=== PATIENT | female | born 1985 | race Caucasian/White ===

== ENCOUNTER 2018-09-03 16:04 | Observation (INO) | payer OTHER ==
[~2018-09-03] VITALS: Ht 154 cm; Wt 92.2 kg
[2018-09-03 16:36] LABS: BASOPHILS % (AUTO) 0.3 % (0.0-2.0); EOSINOPHILS % (AUTO) 0 % (1.0-6.0); HEMATOCRIT 38.8 % (36-46); HEMOGLOBIN 12.6 g/dL (12.0-16.0); LYMPHOCYTES # (AUTO) 2.1 K/uL (1.0-4.8); LYMPHOCYTES % (AUTO) 19.7 % (22.0-44.0); MEAN CORPUSCULAR HEMOGLOBIN 31.3 pg (26.0-34.0); MEAN CORPUSCULAR HGB CONC 32.6 G/dL (31.0-37.0); MEAN CORPUSCULAR VOLUME 96 fL (80-100); MONOCYTES # (AUTO) 0.7 K/uL (0.1-1.0); MONOCYTES % (AUTO) 6.6 % (2.0-9.0); NEUTROPHILS # (AUTO) 7.8 K/uL (1.8-7.7); NEUTROPHILS % (AUTO) 73.4 % (40.0-70.0); PLATELET COUNT (AUTO) 218 K/uL (150-450); RED BLOOD CELL COUNT(AUTO) 4.04 MIL/uL (4.00-5.20); RED CELL DISTRIBUTION WIDTH 13.8 % (11.5-14.5)
[2018-09-03 16:49] LABS: ANION GAP 12 mmol/L (8-16); CALCIUM, TOTAL 9.7 mg/dL (8.8-10.5); CARBON DIOXIDE 22 mmol/L (22-29); CHLORIDE 102 mmol/L (98-107); CREATININE 0.73 mg/dL (0.60-1.30); GLOMERULAR FILTR. RATE CALC > 60 mL/min (>60); GLUCOSE,RANDOM 68 mg/dL (70-110); POTASSIUM 3.7 mmol/L (3.5-5.1); SODIUM SERUM 136 mmol/L (136-145); UREA NITROGEN, BLOOD 9 mg/dL (7-18)
[2018-09-03 16:54] LABS: ALANINE AMINOTRANSFERASE 13 U/L (12-78); ALBUMIN 2.6 g/dL (3.4-5.0); ALKALINE PHOSPHATASE 145 U/L (46-116); ASPARTATE AMINOTRANSFERASE 10 U/L (15-37); BILIRUBIN,TOTAL 0.6 mg/dL (0.1-1.0); URIC ACID 4.8 mg/dL (2.6-7.2)
== END 2018-09-03 20:20 | disposition home or self-care (01) ==
LOC: 4S 16:04
PROVIDERS: ADMIT Obstetrics & Gynecology; ATTEND Obstetrics & Gynecology
DX: O26.893 Other specified pregnancy related conditions, third trimester (principal); R03.0 Elevated blood-pressure reading, without diagnosis of hypertension; Z3A.38 38 weeks gestation of pregnancy
CPT/HCPCS: 36415; 80053; 81002; 84550; 85025; G0378

== ENCOUNTER 2018-09-08 10:19 | Inpatient (IN) | payer OTHER ==
[~2018-09-08] VITALS: Ht 154.9 cm; Wt 95.7 kg
[2018-09-08] MEDS ORDERED: RINGERS SOLUTION,LACTATED 1,000 ML IV ONE (10:27)
[2018-09-08] MEDS ORDERED: METOCLOPRAMIDE HCL 5 MG/ML 2 ML VIAL IVP ONE (10:30)
[2018-09-08] MEDS ORDERED: CITRIC ACID/SODIUM CITRATE 30 ML SOLUTION UDCUP PO ONE (10:30)
[2018-09-08 10:42] VITALS: BP 115/55
[2018-09-08] MEDS ORDERED: NALBUPHINE HCL 10 MG/ML VIAL IVP PRN ×2 (11:15)
[2018-09-08] MEDS ORDERED: NALOXONE HCL 0.4 MG/ML VIAL IVP PRN (11:15)
[2018-09-08] MEDS ORDERED: DiphenhydrAMINE HCL 50 MG/ML VIAL IVP PRN (11:15)
[2018-09-08] MEDS ORDERED: ONDANSETRON HCL 4 MG/2 ML VIAL IVP PRN (11:15)
[2018-09-08] MEDS ORDERED: FentaNYL CITRATE-PF 100 MCG/2 ML VIAL IVP PRN (11:15)
[2018-09-08] MEDS ORDERED: MORPHINE SULFATE 10 MG/ML SYRINGE IVP PRN (11:15)
[2018-09-08 11:18] LABS: BASOPHILS % (AUTO) 0.3 % (0.0-2.0); EOSINOPHILS % (AUTO) 0.2 % (1.0-6.0); HEMOGLOBIN 12.2 g/dL (12.0-16.0); LYMPHOCYTES # (AUTO) 1.4 K/uL (1.0-4.8); LYMPHOCYTES % (AUTO) 16.7 % (22.0-44.0); MEAN CORPUSCULAR HEMOGLOBIN 31.5 pg (26.0-34.0); MEAN CORPUSCULAR VOLUME 96 fL (80-100); MONOCYTES # (AUTO) 0.6 K/uL (0.1-1.0); MONOCYTES % (AUTO) 7.4 % (2.0-9.0); NEUTROPHILS # (AUTO) 6.3 K/uL (1.8-7.7); NEUTROPHILS % (AUTO) 75.4 % (40.0-70.0); PLATELET COUNT (AUTO) 197 K/uL (150-450); RED BLOOD CELL COUNT(AUTO) 3.88 MIL/uL (4.00-5.20); RED CELL DISTRIBUTION WIDTH 13.9 % (11.5-14.5)
[2018-09-08] MEDS ORDERED: GUM MASTIC/STORAX/MSAL/ALCOHOL LIQUID 0.67 ML VIAL TP ONE (12:16)
[2018-09-08] MEDS ORDERED: OXYTOCIN 30 UNITS/LACT RINGERS 500 ML IV ONE (15:46)
[2018-09-08] MEDS ORDERED: MAGNESIUM HYDROXIDE SUSPENSION 30 ML UDCUP PO PRN (16:00)
[2018-09-08] MEDS ORDERED: GLYCERIN/WITCH HAZEL LEAF 40 PADS JAR TP PRN (16:00)
[2018-09-08] MEDS ORDERED: BENZOCAINE 20%/MENTHOL 56 GM SPRAY CANISTER TP PRN (16:00)
[2018-09-08] MEDS ORDERED: LANOLIN 7 GM OINTMENT TP PRN (16:00)
[2018-09-08] MEDS ORDERED: LIDOCAINE/PF 1% 30 ML VIAL INJ PRN (16:00)
[2018-09-08] MEDS: ACETAMINOPHEN 1000 MG/ISO-OSM 100 ML IV SCH (17:39)
[2018-09-08] MEDS ORDERED: RINGERS SOLUTION,LACTATED 1,000 ML IV SCH (17:50)
[2018-09-08] MEDS ORDERED: OxyCODONE HCL/ACETAMINOPHEN 5-325 MG TABLET PO PRN (18:00)
[2018-09-08] MEDS ORDERED: OXYGEN THERAPY IH SCH (20:00)
[2018-09-08] MEDS: KETOROLAC TROMETHAMINE 30 MG/ML VIAL IVP SCH (20:23)
[2018-09-09] MEDS: ACETAMINOPHEN 1000 MG/ISO-OSM 100 ML IV SCH (01:09)
[2018-09-09] MEDS: KETOROLAC TROMETHAMINE 30 MG/ML VIAL IVP SCH ×2 (02:48→08:54)
[2018-09-09] MEDS ORDERED: CefoTEtan DISODIUM 1 GM/VIAL IVP ONE (05:30)
[2018-09-09] MEDS ORDERED: ONDANSETRON HCL 4 MG/2 ML VIAL IVP ONE (05:30)
[2018-09-09] MEDS ORDERED: KETOROLAC TROMETHAMINE 60 MG/2 ML VIAL IM ONE (05:30)
[2018-09-09] MEDS ORDERED: FentaNYL CITRATE-PF 100 MCG/2 ML VIAL IVP ONE (05:30)
[2018-09-09] MEDS ORDERED: MORPHINE SULFATE/PF 0.5 MG/ML 10 ML AMP IVP ONE (05:30)
[2018-09-09 06:01] LABS: BASOPHILS % (AUTO) 0.3 % (0.0-2.0); EOSINOPHILS % (AUTO) 0.1 % (1.0-6.0); HEMATOCRIT 28.8 % (36-46); HEMOGLOBIN 9.5 g/dL (12.0-16.0); LYMPHOCYTES # (AUTO) 1.5 K/uL (1.0-4.8); LYMPHOCYTES % (AUTO) 17.7 % (22.0-44.0); MEAN CORPUSCULAR HEMOGLOBIN 31.9 pg (26.0-34.0); MEAN CORPUSCULAR HGB CONC 33.1 G/dL (31.0-37.0); MEAN CORPUSCULAR VOLUME 96 fL (80-100); MONOCYTES # (AUTO) 0.5 K/uL (0.1-1.0); MONOCYTES % (AUTO) 6.6 % (2.0-9.0); NEUTROPHILS # (AUTO) 6.3 K/uL (1.8-7.7); NEUTROPHILS % (AUTO) 75.3 % (40.0-70.0); PLATELET COUNT (AUTO)-OB 163 K/uL (150-450); RED BLOOD CELL COUNT(AUTO) 2.99 MIL/uL (4.00-5.20); RED CELL DISTRIBUTION WIDTH 13.9 % (11.5-14.5)
[2018-09-09] MEDS ORDERED: IBUPROFEN 800 MG TABLET PO PRN (16:00)
[2018-09-09] MEDS ORDERED: OxyCODONE HCL/ACETAMINOPHEN 5-325 MG TABLET PO PRN ×2 (16:00)
[2018-09-09] MEDS: IBUPROFEN 800 MG TABLET PO PRN ×2 (16:35→23:30)
[2018-09-09] MEDS: OxyCODONE HCL/ACETAMINOPHEN 5-325 MG TABLET PO PRN (20:43)
[2018-09-09] MEDS: MAGNESIUM HYDROXIDE SUSPENSION 30 ML UDCUP PO SCH (20:44)
[2018-09-10] MEDS: IBUPROFEN 800 MG TABLET PO PRN ×2 (06:33→16:18)
[2018-09-10] MEDS: MAGNESIUM HYDROXIDE SUSPENSION 30 ML UDCUP PO SCH ×2 (08:08→21:21)
[2018-09-10] MEDS: OxyCODONE HCL/ACETAMINOPHEN 5-325 MG TABLET PO PRN (08:09)
[2018-09-11] MEDS: IBUPROFEN 800 MG TABLET PO PRN (05:41)
[2018-09-11] MEDS: MAGNESIUM HYDROXIDE SUSPENSION 30 ML UDCUP PO SCH (08:48)
[2018-09-11] MEDS ORDERED: IBUP-2071 PO (13:54)
== END 2018-09-11 14:30 | disposition home or self-care (01) | DRG 785 ==
LOC: OBSVTOIN 10:19 → 4S 10:19
PROVIDERS: ADMIT Obstetrics & Gynecology; ATTEND Obstetrics & Gynecology
PROC: 10D00Z1 Extraction of Products of Conception, Low, Open Approach (ICD-10-PCS; principal; 2018-09-08)
PROC: 0UB70ZZ Excision of Bilateral Fallopian Tubes, Open Approach (ICD-10-PCS; 2018-09-08)
DX: O34.211 Maternal care for low transverse scar from previous cesarean delivery (principal); Z3A.39 39 weeks gestation of pregnancy; Z37.0 Single live birth
CPT/HCPCS: 86850; 86900; 86901; 87081; 88302; J0131; J1885; J2274; J2405; J2765; J3010; J3490; J7120